=== PATIENT | female | born 1970 | race Caucasian/White ===

== ENCOUNTER → 2017-12-28 | Outpatient (CLI) | payer OTHER ==
[~2017-12-28] MED LIST: GADOBENATE DIMEGLUMINE 1 ML IV ONE
[2017-12-28 09:07] LABS: BLOOD UREA NITROGEN 16 mg/dL (7-26); BUN/CREATININE RATIO 24 (6-25); CREATININE, SERUM 0.67 mg/dL (0.57-1.11); EST GLOMERULAR FILTRATION RATE > 60 ML/MIN (60-)
--- NOTE | 2017-12-28 11:18 | Diagnostic Imaging Report ---
History: Neck pain Comparison studies: None Technique: Axial and sagittal T2, sagittal inversion recovery, post axial and sagittal T1. Intravenous contrast: 20 cc of MultiHance Findings: Alignment: Normal lordosis. No scoliosis. Cervicomedullary junction: No abnormalities. Patent foramen magnum. Soft tissues: No T2 hyperintense inflammatory changes. Spinal cord: Normal in signal intensity and morphology from the foramen magnum through T4. Vertebrae: Normal in height and signal intensity. No fractures, infection or neoplasm. Enhancing abnormalities: None Degenerative changes: C2-C3: No abnormalities. C3-C4: Mild right uncinate process hypertrophy with patent canal and foramina C4-C5: Small central disc osteophyte complex and mild left facet hypertrophy with patent canal and foramina C5-C6: Small central disc osteophyte complex with patent canal and foramina C6-C7: No abnormalities. C7-T1: No abnormalities. No abnormal enhancement IMPRESSION: 1. Mild degenerative changes of the upper cervical spine with patent canal and foramina Signed by: DR Shorty Borjas M.D. on 12/28/2017 11:15 AM
== END ==
LOC: MRI 08:06
PROVIDERS: ATTEND Student in an Organized Health Care Education/Training Program
DX: R20.9 Unspecified disturbances of skin sensation (principal)
CPT/HCPCS: 36415; 72156; 82565; 84520

== ENCOUNTER → 2018-03-21 | Outpatient (CLI) | payer OTHER | LOC: RAD 16:30 | PROVIDERS: ATTEND Family Medicine | DX: L03.116 Cellulitis of left lower limb (principal) | CPT/HCPCS: 93971 ==

== ENCOUNTER → 2018-04-30 | Outpatient (CLI) | payer OTHER ==
--- NOTE | 2018-04-30 19:58 | Diagnostic Imaging Report ---
EXAMINATION: MRI of the cervical spine without contrast HISTORY: Neck and right shoulder pain and numbness. Right upper extremity pain and numbness for the last 3 years. COMPARISON: None available TECHNIQUE: Sagittal T1, T2, STIR; axial T2, gradient echo. FINDINGS: Curvature: Normal lordosis. Vertebrae: No evidence of neoplasm, infection, or fracture. Foramen magnum: No mass, Chiari malformation, or basilar invagination. Spinal Cord: Normal size and signal intensity. Soft Tissues: Partially visualized subcentimeter T2 hyperintense nodule in the left lobe of the thyroid gland, otherwise unremarkable. Degenerative changes: C1-C2: Unremarkable. C2-C3 and C3-C4: Minimal facet arthrosis without canal or foraminal stenosis. C4-C5 and C5-C6: Minimal symmetric disc bulge and facet arthrosis without canal or foraminal stenoses. C6-C7: Unremarkable. C7-T1: Unremarkable. IMPRESSION: 1. Minimal degenerative changes from C2-C3 to C5-C6 without spinal canal or foraminal stenoses. 2. Normal cervical spinal cord, no evidence of nerve root compression. Signed by: Dr. Sarah Ge M.D. on 04/30/2018 7:54 PM
== END ==
LOC: MRI 15:51
PROVIDERS: ATTEND Family Medicine
DX: M54.12 Radiculopathy, cervical region (principal)
CPT/HCPCS: 72141

== ENCOUNTER → 2019-01-06 | Outpatient (CLI) | payer OTHER ==
--- NOTE | 2019-01-06 15:11 | Diagnostic Imaging Report ---
Thyroid ultrasound. History: Nodules Comparison: <None available>. Discussion: Transverse and longitudinal images of the thyroid were obtained demonstrating heterogeneity of the thyroid gland. The sizes of the lobes are normal with the right thyroid lobe measuring 3.6 x 1.4 x 1.4 cm and the left measuring 4.2 x 1.3 x 1.7 cm. The isthmus measures 0.2. There is a hypoechoic nodule in the midpole of the right thyroid lobe measuring 6 x 4 x 5 mm. Follow-up in 1 year recommended. There is a hypoechoic nodule in the midpole of the left thyroid lobe measuring 9 x 7 x 1.1 cm. Follow-up in 1 year recommended. Prominent lymph node in the left neck is noted measuring 1.2 x 0.6 x 0.7 cm. IMPRESSION: Bilateral thyroid nodules as described above. Signed by: Dr. Kirit Franco DO on 01/06/2019 3:07 PM
== END ==
LOC: US 13:32
PROVIDERS: ATTEND Family Medicine
DX: E04.1 Nontoxic single thyroid nodule (principal)
CPT/HCPCS: 76536